=== PATIENT | female | born 1990 | race Two or more races ===

== ENCOUNTER 2017-01-03 08:43 | Emergency (ER) | payer BC ==
[~2017-01-03] VITALS: Ht 165.1 cm; Wt 50.0 kg
[2017-01-03 09:30] LABS: HEMATOCRIT 36.6 % (36.0-46.0); MCH 30.9 PG (29.0-34.0); MCHC 34.2 G/DL (30.0-36.0); MCV 90.4 FL (83-99); PLATELET COUNT 526 K/uL (156-360); RBC DIS.WIDTH-CV 11.9 % (11.8-14.6); RBC DIS.WIDTH-SD 39.4 % (39-53); RED BLOOD COUNT 4.05 M/uL (3.80-5.20); WHITE BLOOD COUNT 12.3 K/uL (4.1-10.2)
[2017-01-03 09:36] LABS: CHLORIDE 102 mEq/L (99-109); SODIUM 139 mEq/L (136-147)
[2017-01-03 09:37] LABS: GLUCOSE 90 mg/dL (70-99)
[2017-01-03 09:39] LABS: ANION GAP 12 MEQ/L (2-14)
[2017-01-03 09:42] LABS: UREA NITROGEN (BUN) 5 mg/dL (9-23)
[2017-01-03 09:45] LABS: GFR ESTIMATE (CALCULATED) > 59 mL/min/
[2017-01-03 09:54] LABS: QUANTITATIVE HCG < 4.0 MIU/ML
[2017-01-03 10:57] LABS: ALKALINE PHOSPHATASE 77 IU/L (3-129)
[2017-01-03 10:58] LABS: TOTAL BILIRUBIN 0.4 mg/dL (0.0-1.0)
[2017-01-03 10:59] LABS: DIRECT BILIRUBIN 0.2 mg/dL (0.0-0.3)
[2017-01-03 11:00] LABS: LIPASE 5 U/L (1.0-51.0)
[2017-01-03 11:52] LABS: ADD MIUA? YES; BILIRUBIN NEGATIVE; BLOOD NEGATIVE; COLOR YELLOW ((YELLOW)); GLUCOSE (STRIP) NEGATIVE; KETONES 20; LEUKOCYTES TRACE; NITRITE NEGATIVE; PROTEIN (STRIP) NEGATIVE; SPECIFIC GRAVITY 1.032 (1.000-1.030); UROBILINOGEN 0.2 MG/DL (0.2-1.0)
[2017-01-03 11:57] LABS: C DIFF TOXIN ND (NEGATIVE)
[2017-01-03 11:59] LABS: BACTERIA RARE /HPF; CALCIUM OXALATE CRYSTALS 1+ /HPF; EPITHELIAL CELLS 1+ /HPF; GRANULAR CASTS 0-5 /LPF; HYALINE CASTS 0-5 /LPF; MUCUS NONE SEEN /LPF; RED BLOOD CELLS 0-5 /HPF (0-5); UCUL ADDED? NO
[2017-01-03] MEDS ORDERED: ZOFRAN4 MG PO (14:42)
[2017-01-03 15:22] VITALS: BP 104/74
== END 2017-01-03 15:38 | disposition home or self-care (01) ==
LOC: EME 08:43
PROVIDERS: Physician Assistant
DX: R10.12 Left upper quadrant pain (principal); R11.2 Nausea with vomiting, unspecified; R19.7 Diarrhea, unspecified; F17.200 Nicotine dependence, unspecified, uncomplicated
CPT/HCPCS: 74177; 80048; 80076; 81003; 83630; 83690; 84702; 85027; 87045; 87046; 87493; 87506; 99281; 99284; J1885; J2405; J7030